=== PATIENT | female | born 1985 | race Caucasian/White ===

== ENCOUNTER 2024-10-03 22:01 | Emergency (ER) | payer SELFPAY ==
[~2024-10-03] VITALS: Ht 160 cm; Wt 68.0 kg
[2024-10-03 22:18] VITALS: TEMP 36.8; O2SAT 95
[2024-10-03 23:09] LABS: BASOPHILS % 0.3 % (0.0-2.0); EOSINOPHILS % 0.1 % (0.0-5.0); HEMATOCRIT. 39.5 % (36.0-48.0); HEMOGLOBIN. 13.8 g/dL (12.0-16.0); LYMPHOCYTES % 22.2 % (20.0-50.0); MEAN PLATELET VOLUME 8.0 fl (7.4-10.4); MONOCYTES % 3.5 % (2.0-8.0); NEUTROPHILS % 73.9 % (40.0-76.0); PLATELET 258 x1000/uL (130-400); RED BLOOD CELL COUNT 4.41 mill/uL (4.2-5.4); RED CELL DISTRIBUTION WIDTH 12.4 % (11.6-14.6)
[2024-10-03 23:16] LABS: CREATININE 0.9 mg/dL (0.6-1.0)
[2024-10-03 23:17] LABS: ETHANOL BLOOD 268 mg/dL (<10); UREA NITROGEN BLOOD 10 mg/dL (9-23)
[2024-10-03 23:25] LABS: HCG SCREEN NEGATIVE
[2024-10-04] MEDS: POTASSIUM CHLORIDE 20MEQ/PACKET PO ONE (00:50)
[2024-10-04 02:41] VITALS: BP 107/69; PULSE 72; RESP 18; O2SAT 98
== END 2024-10-04 02:43 | disposition home or self-care (01) ==
LOC: ER 22:01
DX: S09.8XXA Other specified injuries of head, initial encounter (principal); F10.129 Alcohol abuse with intoxication, unspecified; X58.XXXA Exposure to other specified factors, initial encounter; Y93.89 Activity, other specified; Y92.89 Other specified places as the place of occurrence of the external cause; Y99.8 Other external cause status; Y90.8 Blood alcohol level of 240 mg/100 ml or more
CPT/HCPCS: 36415; 80048; 80320; 84703; 85025; 99284; G0480